=== PATIENT | female | born 2000 | race Caucasian/White ===

== ENCOUNTER 2022-10-15 08:49 | Day surgery (SDC) | payer BC ==
[2022-10-15] MEDS ORDERED: Piperacillin/Tazobactam 3.375 GM VIAL ONE (09:42)
[2022-10-15] MEDS ORDERED: Sodium Chloride 0.9% 100 ML ONE (09:42)
[2022-10-15] MEDS ORDERED: Bupivacaine/Epinephrine 0.25% 30 ML VIAL ONE (13:54)
[2022-10-15] MEDS ORDERED: fentaNYL PF 100 MCG/2 ML SYRINGE ONE (13:57)
[2022-10-15] MEDS ORDERED: Rocuronium Bromide 10 MG/ML (10ML VIAL) ONE (14:07)
[2022-10-15] MEDS ORDERED: Dexamethasone 20 MG/5 ML VIAL ONE (14:07)
[2022-10-15] MEDS ORDERED: PROPOFOL 200 MG/20 ML VIAL ONE (14:07)
[2022-10-15] MEDS ORDERED: Ondansetron PF 4 MG/2 ML Vial ONE (14:07)
[2022-10-15] MEDS ORDERED: Lidocaine 1% PF 5 ML VIAL ONE (14:07)
[2022-10-15] MEDS ORDERED: Ketorolac Tromethamine 30 MG/ML VIAL ONE (14:07)
== END 2022-10-15 16:12 | disposition home or self-care (01) ==
LOC: SDC 08:49
PROVIDERS: ATTEND Surgery
PROC: 0DTJ4ZZ Resection of Appendix, Percutaneous Endoscopic Approach (ICD-10-PCS; principal; 2022-10-15)
DX: K35.80 Unspecified acute appendicitis (principal); E66.9 Obesity, unspecified; Z68.30 Body mass index [BMI] 30.0-30.9, adult
CPT/HCPCS: 88304; A4649; J1100; J1885; J2405; J2543; J2704; J3490